=== PATIENT | female | born 1960 | race Caucasian/White ===

== ENCOUNTER 2023-03-08 07:26 | Inpatient (IN) ==
--- NOTE | 2023-02-16 12:55 | PAT Medication Instructions ---
Medication Instructions Date of Service February 16, 2023 Home Medications atorvastatin 10 mg tablet (Lipitor) 10 mg PO PM multivitamin 1 tab PO QAM acetaminophen 500 mg tablet (Acetaminophen Extra Strength) 1,000 mg PO TID ibuprofen 800 mg tablet 800 mg PO TID lisinopril 20 mg-hydrochlorothiazide 12.5 mg tablet 1 tab PO QPM ASK your surgeon for instructions ibuprofen 800 mg tablet 800 mg PO TID DO NOT take the morning of surgery multivitamin 1 tab PO QAM Take morning of surgery With a small sip of water, OTHERWISE NOTHING TO EAT OR DRINK AFTER MIDNIGHT: acetaminophen 500 mg tablet (Acetaminophen Extra Strength) 1,000 mg PO TID Take evening before surgery atorvastatin 10 mg tablet (Lipitor) 10 mg PO PM acetaminophen 500 mg tablet (Acetaminophen Extra Strength) 1,000 mg PO TID lisinopril 20 mg-hydrochlorothiazide 12.5 mg tablet 1 tab PO QPM Other Notes If you have any questions please call us at [phone] or [phone] or [phone] or [phone]
--- NOTE | 2023-02-22 09:20 | Anesthesiology Consultation ---
Date of Service February 22, 2023 Assessment & Plan (1) Encounter for pre-operative examination: Infectious disease screening: Per assessment on 02/22: No known infectious disease contacts or current infectious disease symptoms. No noted Covid positive test result in past 90 days. Chart Review Chart Review: Acceptable Risk for Surgery and Patient seen in Pre Admission Testing Teaching & Discussion Pre-Anesthesia Teaching/Discussion Notes: Instructed NPO after midnight before surgery,except medications with 15 cc of water. Medication instructions provided according to the PAT guidelines. History Surgery Operation Date: 03/08/23 09:10 Proposed Procedures p L3-S1 Decompression and Fusion Spinal Cord Monitoring - Jef Reina DO Height/Weight Height: 5 ft 6 in Weight: 96.1 kg Allergies Allergy/AdvReac Type Severity Reaction Status Date / Time No Known Allergies Allergy Verified 02/14/23 12:35 Medications Home Medications Medication Instructions Recorded Confirmed Last Taken atorvastatin 10 mg tablet (Lipitor) 10 mg PO PM 12/11/18 02/14/23 12/11/18 20:00 multivitamin 1 tab PO QAM 12/11/18 02/14/23 12/05/18 acetaminophen 500 mg tablet 1,000 mg PO TID 02/14/23 02/14/23 Unknown (Acetaminophen Extra Strength) ibuprofen 800 mg tablet 800 mg PO TID 02/14/23 02/14/23 Unknown lisinopril 20 1 tab PO QAM 02/14/23 02/22/23 Unknown mg-hydrochlorothiazide 12.5 mg tablet Past Medical History Medical History Chronic back pain DJD (degenerative joint disease) Dyslipidemia HTN (hypertension) Obesity Osteoarthritis Scoliosis Exercise / Class Metabolic Activity II 4-5 Yardwork/Stairs/Walk up hill Past Family History Family History Mother Family history of diabetes mellitus Past Surgical History Surgical History History of section x2 History of colonoscopy History of esophagogastroduodenoscopy (EGD) History of tooth extraction Hx of laminectomy L1-2 right laminectomy (12/12/18): Grade 3 view, MAC#3, ETT 7.0 at [facility] Nausea and vomiting after administration of anesthetic agent Past Anesthesia History No Hx of Anesthesia Complications and No Family Hx of Anesthesia Complications History of PONV History of PONV (*Improvement with scope patch + zofran in the past*) and Hx of Motion Sickness ([place]) Social History Smoking Status: Never smoker Do You Dip or Chew Tobacco: No Hx Alcohol Use: No Hx Substance Use: No substance use type: does not use Review of Systems Patient denies chest pain, shortness of breath, dyspnea on exertion, fever, chills, cough, wheezing, palpitations. Physical Exam Vital Signs VITALS BP 128/86 P 64 TEMP 98.3 SP02 97%RA RESP 16 PHYSICAL Full cervical extension range of motion. Full TMJ range of motion. TMD 3 finger breaths Mallampati Score 2 Dentition: intact, upper front right cap Lungs: clear throughout to auscultation Cardiac: regular rate and rhythm, no murmurs noted Spine: normal Carotid arteries: negative bruit Extremities: no LE edema Lab Results Anesthesia Preop Results Results Anesthesia Widget: WBC 5.83 K/ul (4.8-10.8) 02/22/23 Hgb 12.3 g/dl (12.0-16.0) 02/22/23 Hct 37.1 % (37.0-47.0) 02/22/23 Plt 337 K/uL (130-400) 02/22/23 Na 136 mmol/L (136-145) 02/22/23 K 4.6 mmol/L (3.5-5.1) 02/22/23 Cl 100 mmol/L (98-107) 02/22/23 CO2 30 mmol/L (21-32) 02/22/23 BUN 14 mg/dl (6-23) 02/22/23 Creat 0.80 mg/dl (0.6-1.2) 02/22/23 Glucose Level 109 mg/dl (70-99(Fasting)) H 02/22/23 PT 10.1 Seconds (9.0-12.0) 02/22/23 PTT 27.9 Seconds (21.0-31.0) 02/22/23 INR 0.9 (0.9-1.1) 02/22/23 Urine Color Yellow 02/22/23 Urine Appearance Clear (Clear) 02/22/23 Urine pH 5.5 (4.5-7.5) 02/22/23 Urine Specific [place] 1.021 (1.000-1.030) 02/22/23 Urine Protein Negative (Negative) 02/22/23 Urine Glucose (UA) Negative (Negative) 02/22/23 Urine Ketones Negative (Negative) 02/22/23 Urine Blood Negative (Negative) 02/22/23 Urine Nitrite Negative (Negative) 02/22/23 Urine Bilirubin Negative (Negative) 02/22/23 Urine Urobilinogen Negative (Negative) 02/22/23 Urine Leukocyte Esterase 1+ (Negative) H 02/22/23 Urine WBC (Auto) 1-5 /hpf (0-5) 02/22/23 Urine RBC (Auto) 0-4 /hpf (0-4) 02/22/23 Urine Hyaline Casts (Auto) 0 /lpf (0-5) 02/22/23 Urine Epithelial Cells (Auto) >30 /lpf (0-5) H 02/22/23 Urine Bacteria (Auto) Negative (Negative) 02/22/23 Blood Type O Positive 02/22/23 Antibody Screen NEGATIVE 02/22/23 Testing Electrocardiogram Date: 02/22/23 SB at 56bpm. LAD. Low voltage QRS. No significant change compared to 12/05/2018 ECG per consulting hr professional comparison* Chest X-Ray Date: 02/22/23 FINDINGS: No lines and tubes are seen. The cardiomediastinal silhouette is normal. The lungs are clear. No evidence of pleural effusion or pneumothorax. IMPRESSION: No acute chest disease.
[~2023-03-08 07:26] MED LIST: ACETAMINOPHEN 500 MG TAB PO SCH; CeleBREX 200 MG CAP PO SCH; DEXAMETHASONE SOD INJ 4 MG/ML VIAL ONE; GABAPENTIN 600 MG DOSE PO SCH; LIDOCAINE 2% 2 ML VIAL/AMP(20MG/ML) INFIL ONE; LR 15ML/HR IV SCH; LR 60ML/HR IV SCH; MIDAZOLAM HCL 1 MG/ML 2ML VIAL ONE; ONDANSETRON INJ 2 MG/ML 2 ML VIAL ONE; PROPOFOL IV EMULSION 10 MG/ML 20 ML VIAL IV ONE; ROCURONIUM BROMIDE 10 MG/ML 5 ML VIAL IV ONE; SUGAMMADEX SODIUM 200 MG/2 ML VIAL IV ONE; ceFAZolin 2000MG 2,000 MG/15 ML SYR IV SCH; fentaNYL citrate PF 100 MCG/2 ML VIAL ONE
[2023-03-08] MEDS ORDERED: SCOPOLAMINE 1 MG TDSY TD ONE ×2 (08:21→08:28)
--- NOTE | 2023-03-08 08:22 | History & Physical Bridge Note ---
Date of Service March 08, 2023 History & Physical Bridge Note I have examined the patient, reviewed the History & Physical and in the interval since the performance of the History & Physical I have noted the following changes of clinical significance: no changes noted
--- NOTE | 2023-03-08 08:23 | History & Physical Report ---
Date of Service March 08, 2023 Assessment & Plan (1) Neurogenic claudication due to lumbar spinal stenosis: Plan: L3-S1 decompression and fusion History of Present Illness Chief Complaint: Back and leg pain Primary Care Provider: Cori Donnelly DO This is a 62-year-old female who presents with chronic persistent back and leg pain after failing course of nonoperative care she is here for surgical intervention. Allergies Allergy/AdvReac Type Severity Reaction Status Date / Time No Known Allergies Allergy Verified 02/14/23 12:35 Home Medications Medication Instructions Recorded Confirmed Type atorvastatin 10 mg tablet (Lipitor) 10 mg PO PM 12/11/18 03/08/23 History multivitamin 1 tab PO QAM 12/11/18 03/08/23 History acetaminophen 500 mg tablet 1,000 mg PO TID 02/14/23 03/08/23 History (Acetaminophen Extra Strength) ibuprofen 800 mg tablet 800 mg PO TID 02/14/23 03/08/23 History lisinopril 20 1 tab PO QAM 02/14/23 03/08/23 History mg-hydrochlorothiazide 12.5 mg tablet Past Med/Surg History Medical History Chronic back pain DJD (degenerative joint disease) Dyslipidemia HTN (hypertension) Obesity Osteoarthritis Scoliosis Surgical History History of section x2 History of colonoscopy History of esophagogastroduodenoscopy (EGD) History of tooth extraction Hx of laminectomy L1-2 right laminectomy (12/12/18): Grade 3 view, MAC#3, ETT 7.0 at [facility] Nausea and vomiting after administration of anesthetic agent Family History Mother Family history of diabetes mellitus Social History Smoking Status: Never smoker Second Hand Exposure: No; Do You Dip or Chew Tobacco: No; Tobacco Cessation Education Requested by Patient: No Hx Alcohol Use: No Hx Substance Use: No Preferred Language: Chinese Communication Ability: Effective Editor Trade Journal Required: No Beliefs That Will Affect Care: None Current Living Situation: Spouse Other Information That Helps Us Care for You: No Feels Safe at Home: Yes Safety Concerns: Feels Safe At This Time Assistive Devices: None Physical Exam Physical Exam: Patient is alert and oriented Heart rate and rhythm Lungs clear Results & Data Results & Data Vital Signs (Past 12 Hours) Vital Signs Temp Pulse Resp BP Pulse Ox O2 Del Method 03/08/23 07:51 36.6 C 74 18 144/97 H 97 Room Air
[2023-03-08] MEDS ORDERED: ePHEDrine sulfate 50 MG/ML AMP IV PRN (08:29)
[2023-03-08] MEDS ORDERED: ONDANSETRON INJ 2 MG/ML 2 ML VIAL IV PRN ×2 (08:29→12:47)
[2023-03-08] MEDS ORDERED: ATROPINE SULFATE 0.1 MG/ML 10ML SYR IV PRN (08:29)
[2023-03-08] MEDS ORDERED: ceFAZolin 330 MG/ML 1 GM VIAL ONE (08:45)
[2023-03-08] MEDS ORDERED: BUPIVACAINE/EPINEPHRINE 0.25% 1:200,000 30 ML VIAL ONE (08:45)
[2023-03-08] MEDS ORDERED: fentaNYL citrate PF 100 MCG/2 ML VIAL ONE (09:15)
[2023-03-08] MEDS ORDERED: FLOSEAL HEMOSTATIC MATRIX 10ML TOP ONE (09:44)
--- NOTE | 2023-03-08 11:11 | Operative Report ---
Post Operative Report Pre & Post Diagnosis Operation Date: 03/08/23 09:05 Pre-Op Diagnosis: Lumbar spinal stenosis with radiculopathy Post-Op Diagnosis: Same I identified the patient and participated in the time-out.: Yes Procedure Operation Date: 03/08/23 09:05 Actual Procedures #1 lumbar decompression with bilateral medial facetectomies and foraminotomies L3-L4, L4-L5 and L5-S1. #2 posterior spinal fusion L3-S1. #3 placement posterior segmental instrumentation L3-S1. #4 interbody fusion L4-L5 L5-S1. #5 placement of Spira 12 x 26 mm at L4-5 and 11 x 26 mm x 2 at L5-S1. #6 placement of locally harvested morselized autograft in the posterior gutters. #7 placement of I factor in the interbody cages and infuse collagen sponge, and master graft in the posterior lateral gutters. Surgeon Jef Reina, DO Director Of Design Kayy Syed Estimated Blood Loss 350 Findings See Below The patient is 5 foot 6 weighing over 96 kg with a BMI in excess of 34. Patient's body habitus did contribute to significant technical difficulty requiring her deeper retractors longer instruments in order to perform her procedure. This at least 50% increased operative time. Specimens None Indications This is a 62-year-old female who presents above-mentioned diagnosis after failing course of nonoperative care she is here for surgical invention. Description of Procedure Patient was met with identified informed consent obtained. Patient was then taken to the operative suite underwent a patient placed in a prone position on the Pillager table top Barry frame. All bony prominences well-padded eyes inspected to ensure no external pressure placed upon them. This point lumbar spine was prepped and draped in a sterile fashion. Sharp dissection with assistance of Bovie cautery to form down to and exposing the lamina transverse processes of L3 L4-5 and sacral ala bilaterally. From caudal to cephalad fashion complete laminectomy of L5 L4 and L3 was performed including bilateral medial facetectomies and foraminotomies addressing severe spinal stenosis. Pedi wei screws then placed in L3-L4-L5 and S1 levels bilaterally with assistance of fluoroscopy and appropriately sized jose angel contoured and placed. By way of transforaminal approach on the left discectomy of L5-S1 was performed endplates curetted to subcortical bleeding bone and 11 x 26 mm Spira cage with I factor tapped in position. Then proceeded to the right transforaminal region at L5-S1 completed the discectomy curetted the endplates to subcortical bleeding bone and placed a second 11 x 26 mm Spira cage with I factor into position. Then proceeded to L 4 L5 and again by way the transforaminal approach left complete discectomy performed endplates curetted to subcortical bleeding bone and a 12 x 26 mm Spira cage with I factor tapped in position. The rods were then compressed locked in final position bilaterally. The transverse processes of L3 L4-5 and the sacral ala burred to subcortically and bone. Infuse collagen sponge from mass graft locally harvested morselized autograft was placed in the posterior gutters. 15 round AGUSTINA drain inserted. The incision was then closed with 1 Vicryl to fascia 2-0 Vicryl subcutaneously and 4 Monocryl for final skin closure. Steri-Strip sterile dressings placed. Patient awakened taken to PACU stable condition. Please note spinal cord monitoring was utilized at the procedure no changes noted. Lastly Kayy Syed was present at the entire katherine sean and while the patient positioning complex portion of the surgery and final skin closure. I attest to the content of the Intraoperative Record and any orders documented therein. Any exceptions are noted below.
--- NOTE | 2023-03-08 11:32 | Fluoroscopy Report ---
FL lumbar spine 2-3V CLINICAL HISTORY: L3-S1 DECOMPRESSION AND FUSION TECHNIQUE: 3 views were obtained with the C-arm in the OR with the above procedure. Total fluoroscopy time was 33.6 seconds. Radiation dose was 35.81 mGy. Comparison: Comparison is made to lumbar spine fluoroscopy 12/12/2018 FINDINGS/IMPRESSION: Intraoperative images were obtained of L3-S1 decompression fusion. Please correlate with intraoperative fluoroscopy and operative report. ACT 112: Negative or not required by law. Electronically signed by: Bunny Perales M.D. 03/08/2023 11:31 AM
[2023-03-08] MEDS ORDERED: ROCURONIUM BROMIDE 10 MG/ML 5 ML VIAL IV ONE ×3 (11:33)
[2023-03-08] MEDS: fentaNYL citrate PF 100 MCG/2 ML VIAL IV PRN ×4 (11:36→11:53)
[2023-03-08] MEDS ORDERED: HYDROmorphone INJ 0.5 MG/0.5 ML SYR IV STA ×4 (12:04→12:22)
[2023-03-08] MEDS ORDERED: HYDROmorphone INJ 2 MG/ML SYR/VIAL ONE (12:05)
[2023-03-08] MEDS ORDERED: diphenhydrAMINE Capsule 25 MG CAP PO PRN (12:47)
[2023-03-08] MEDS ORDERED: PROMETHAZINE HCL 12.5 MG in SODIUM CHLORIDE 0.9% 50 ML IV PRN (12:47)
[2023-03-08] MEDS ORDERED: HYDROmorphone INJ 1 MG/ML SYRINGE IV PRN (12:47)
[2023-03-08] MEDS ORDERED: ACETAMINOPHEN 500 MG TAB PO PRN (12:47)
[2023-03-08] MEDS ORDERED: FAMOTIDINE 20 MG TAB PO PRN (12:47)
[2023-03-08] MEDS ORDERED: LORazepam 2 MG/1 ML VIAL IV PRN (12:47)
[2023-03-08] MEDS ORDERED: LORazepam 0.5 MG TAB PO PRN (12:47)
[2023-03-08] MEDS ORDERED: ONDANSETRON 4 MG OD TAB PO PRN (12:47)
[2023-03-08] MEDS ORDERED: MAGNESIUM HYDROXIDE SUSP 30 ML UDC PO PRN (12:47)
[2023-03-08] MEDS ORDERED: HYDROmorphone INJ 0.5 MG/0.5 ML SYR IV PRN (12:47)
[2023-03-08] MEDS ORDERED: DO NOT ADMINISTER PNEUMOCOCCAL VACCINE PRN (12:47)
[2023-03-08] MEDS ORDERED: ALUMINUM/MAGNESIUM SUSP 30 ML UDC PO PRN (12:47)
[2023-03-08] MEDS ORDERED: hydrOXYzine HCl 25 MG TAB PO PRN (12:47)
[2023-03-08] MEDS ORDERED: ACETAMINOPHEN 1,000 MG/100 ML VIAL IV PRN (12:47)
[2023-03-08] MEDS ORDERED: SOD PHOSPHATE/SOD BIPHOSPHATE ENEMA 132 ML BTL PR PRN (12:47)
[2023-03-08] MEDS ORDERED: bisacodyL 10 MG SUPP PR PRN (12:47)
[2023-03-08] MEDS ORDERED: METOCLOPRAMIDE HCL INJ 5 MG/ML 2 ML VIAL IV PRN (12:47)
[2023-03-08] MEDS ORDERED: DO NOT ADMINISTER FLU VACCINE PRN (12:47)
[2023-03-08] MEDS ORDERED: NALOXONE HCL 0.4 MG/1 ML VIAL/CARP IV PRN (12:47)
[2023-03-08] MEDS: LACTATED RINGER'S 1,000 ML IV SCH ×2 (13:38→20:20)
--- NOTE | 2023-03-08 14:34 | Anesthesiology Progress Note ---
Date of Service March 08, 2023 Anesthesia Post Procedure Vital Signs Vital Signs: Temp Pulse Pulse Resp BP BP Pulse Ox 03/08/23 13:57 97.2 F L 65 18 124/77 97 03/08/23 13:00 97.2 F L 58 L 18 147/83 H 100 03/08/23 12:50 97.3 F L 60 18 124/80 99 03/08/23 12:35 97.5 F L 54 L 12 126/76 100 03/08/23 12:25 54 L 12 127/72 100 03/08/23 12:15 54 L 12 120/65 100 03/08/23 12:05 60 17 144/70 H 97 03/08/23 11:55 63 18 130/84 100 03/08/23 11:45 54 L 12 115/69 100 03/08/23 11:35 70 12 126/72 100 03/08/23 11:28 96.8 F L 71 16 121/71 98 03/08/23 07:51 97.9 F 74 18 144/97 H 97 O2 Del Method O2 Flow Rate 03/08/23 13:57 Room Air 03/08/23 13:00 Room Air 03/08/23 12:50 Room Air 03/08/23 12:35 Nasal Cannula 2 03/08/23 12:25 Nasal Cannula 2 03/08/23 12:15 Nasal Cannula 2 03/08/23 12:05 Nasal Cannula 2 03/08/23 11:55 Oxymask 4 03/08/23 11:45 Oxymask 4 03/08/23 11:35 Oxymask 9 03/08/23 11:28 Oxymask 9 03/08/23 07:51 Room Air Pain Intensity Back: Pain Intensity: 4 Right Leg: Pain Intensity: 4 Transfer of Care Handoff Completed per policy Notes Mental Status: alert / awake / arousable and participated in evaluation Patient Amnestic to Procedure: Yes Nausea / Vomiting: adequately controlled Pain: adequately controlled Airway Patency, RR, SpO2: stable & adequate BP & HR: stable & adequate Hydration State: stable & adequate Anesthetic Complications: no major complications apparent and Pt Satisfied with anesthetic care
[2023-03-08] MEDS: oxyCODONE HCL IR 5 MG TAB (IMMEDIATE RELEASE) PO PRN ×2 (15:00→20:11)
[2023-03-08] MEDS: CHECK SCOPOLAMINE PATCH PLACEMENT SCH ×2 (16:21→21:12)
[2023-03-08] MEDS: ceFAZolin 2000MG 2,000 MG/15 ML SYR IV SCH (17:28)
[2023-03-08] MEDS: ATORVASTATIN 10 MG TAB PO SCH (20:13)
[2023-03-08] MEDS: DOCUSATE SODIUM/SENNA 50/8.6MG TAB PO SCH (20:13)
[2023-03-09] MEDS: ceFAZolin 2000MG 2,000 MG/15 ML SYR IV SCH (00:20)
[2023-03-09] MEDS: oxyCODONE HCL IR 5 MG TAB (IMMEDIATE RELEASE) PO PRN ×4 (00:20→17:07)
--- NOTE | 2023-03-09 02:26 | Consultation ---
Date of Consultation March 09, 2023 Assessment & Plan (1) Hypertension: 62-year-old female past med significant for hyperlipidemia, prediabetes, hypertension, history of lumbar laminectomy is s/p back surgery. Status post back surgery Management as per orthopedics Hypertension Lisinopril hydrochlorothiazide We will monitor Prediabetes We will follow HbA1c levels Hyperlipidemia On statin DVT prophylaxis and disposition as per orthopedics History of Present Illness Reason for Consultation: S/p back surgery Attending Physician: Jef Reina DO History of Present Illness 62-year-old female past med significant for hyperlipidemia, prediabetes, hypertension, history of lumbar laminectomy is s/p back surgery. Tolerated procedure fine. Resting comfortably. Denies chest pain or shortness of breath. No headaches. No nausea. No abdominal pain. Appetite is okay. No cough. No fevers. Normal bowel and bladder movements. Past medical history as mentioned above Past surgical history. . Colonoscopy. EGD. Laminectomy. Social history. . No smoking. No alcohol. No drug use. Family history. Mother had diabetes, heart disorder, hypertension, stroke. Father had prostate cancer. Sister has hypertension. Brother has hypertension. Allergies Allergy/AdvReac Type Severity Reaction Status Date / Time No Known Allergies Allergy Verified 02/14/23 12:35 Home Medications Medication Instructions Recorded Confirmed Type atorvastatin 10 mg tablet (Lipitor) 10 mg PO PM 12/11/18 03/08/23 History multivitamin 1 tab PO QAM 12/11/18 03/08/23 History acetaminophen 500 mg tablet 1,000 mg PO TID 02/14/23 03/08/23 History (Acetaminophen Extra Strength) ibuprofen 800 mg tablet 800 mg PO TID 02/14/23 03/08/23 History lisinopril 20 1 tab PO QAM 02/14/23 03/08/23 History mg-hydrochlorothiazide 12.5 mg tablet Patient History Medical History Chronic back pain DJD (degenerative joint disease) Dyslipidemia HTN (hypertension) Obesity Osteoarthritis Scoliosis Surgical History History of section x2 History of colonoscopy History of esophagogastroduodenoscopy (EGD) History of tooth extraction Hx of laminectomy L1-2 right laminectomy (12/12/18): Grade 3 view, MAC#3, ETT 7.0 at [facility] Nausea and vomiting after administration of anesthetic agent Family History Mother Family history of diabetes mellitus Social History Smoking Status: Never smoker Second Hand Exposure: No; Do You Dip or Chew Tobacco: No; Tobacco Cessation Education Requested by Patient: No Hx Alcohol Use: No Hx Substance Use: No Preferred Language: [place] Communication Ability: Effective Abrasive Worker Required: No Beliefs That Will Affect Care: None Current Living Situation: Spouse Other Information That Helps Us Care for You: No Feels Safe at Home: Yes Safety Concerns: Feels Safe At This Time Assistive Devices: None Review of Systems Review of Systems: All systems reviewed & are unremarkable except as noted in HPI & below Physical Exam Physical Exam: General- Not in distress. Head- atraumatic Eyes-, EOMI Neck- supple, no JVD. Lungs- clear to auscultation no wheezing or crackles. Heart- regular rhythm; no murmur, no gallop. Abdomen- normal bowel sounds, soft, nontender, no distension. Extremities- no pretibial edema, moves extremities Neuro- alert, oriented x 3; EOMI; no facial palsy; no dysarthria;Non focal. Musculoskeletal. S/p back surgery. dressing intact. Results & Data Vital Signs (Past 12 Hours) Vital Signs Temp Pulse Resp BP Pulse Ox O2 Del Method 03/08/23 20:20 Room Air 03/08/23 22:58 36.4 C L 61 18 126/82 100 Room Air 03/08/23 19:04 36.3 C L 60 16 122/77 100 Room Air 03/08/23 15:50 36.4 C L 63 18 138/83 99 Room Air 03/08/23 14:55 36.5 C 61 18 138/83 99 Room Air Diagnostic Findings Laboratory Results Blood Type O Positive 03/08/23 07:46 Antibody Screen NEGATIVE 03/08/23 07:46 Crossmatch See Detail 03/08/23 07:46 Impressions Lumbar Spine X-Ray 03/08/23 09:05 FL lumbar spine 2-3V CLINICAL HISTORY: L3-S1 DECOMPRESSION AND FUSION TECHNIQUE: 3 views were obtained with the C-arm in the OR with the above procedure. Total fluoroscopy time was 33.6 seconds. Radiation dose was 35.81 mGy. Comparison: Comparison is made to lumbar spine fluoroscopy 12/12/2018 FINDINGS/IMPRESSION: Intraoperative images were obtained of L3-S1 decompression fusion. Please correlate with intraoperative fluoroscopy and operative report. ACT 112: Negative or not required by law. Electronically signed by: Bunny Perales M.D. 03/08/2023 11:31 AM
[2023-03-09] MEDS: POLYETHYLENE (MIRALAX) 17 GM PACK PO SCH ×4 (06:28→22:56)
[2023-03-09 06:41] LABS: Basophils # (auto) 0.01 K/uL (0.00-0.20); Basophils % (auto) 0.1 %; Hematocrit (blood only) 31.5 % (37.0-47.0); Hemoglobin 10.5 g/dl (12.0-16.0); Immature Granulocytes # (auto) 0.09 K/uL (0.01-0.20); Immature Granulocytes % (auto) 0.6 %; Lymphocytes # (auto) 1.38 K/uL (1.20-3.40); Lymphocytes % (auto) 8.9 %; Mean Corpuscular Hemoglobin 30.1 pg (25.0-34.0); Mean Corpuscular Hgb Conc 33.3 g/dL (32.0-36.0); Mean Corpuscular Volume 90.3 fL (80.0-100.0); Mean Platelet Volume 9.5 fL (9.4-12.4); Monocytes # (auto) 1.37 K/uL (0.11-0.59); Monocytes % (auto) 8.8 %; Neutrophils # (auto) 12.71 K/uL (1.40-6.50); Neutrophils % (auto) 81.6 %; Platelet Count 272 K/uL (130-400); RDW Coefficient of Variation 14.1 % (11.5-14.5); RDW Standard Deviation 46.9 fL (36.4-46.3); Red Blood Count 3.49 M/uL (4.20-5.40); White Blood Count 15.56 K/ul (4.8-10.8)
[2023-03-09 07:08] LABS: Calcium 9.2 mg/dl (8.6-10.3); Creatinine Clr Calc Pharmacy 89.8 ml/min; Est GFR (African American) 98.3 ml/min; Est GFR (Non-African American) 84.8 ml/min; Potassium 4.2 mmol/L (3.5-5.1)
[2023-03-09 07:29] LABS: Estimated Average Glucose 131 mg/dl; Hemoglobin A1C 6.2 % (4.5-5.6)
[2023-03-09] MEDS: CHECK SCOPOLAMINE PATCH PLACEMENT SCH ×3 (08:12→22:56)
[2023-03-09] MEDS: dexAMETHasone 6 MG in SYRINGE 0 ML IV SCH (08:13)
[2023-03-09] MEDS: LISINOPRIL/HCTZ 20/12.5MG 1 TAB TAB PO SCH (08:14)
[2023-03-09] MEDS: MULTIVITAMIN TAB PO SCH (08:15)
--- NOTE | 2023-03-09 11:14 | Consultation ---
Date of Consultation March 09, 2023 Assessment & Plan (1) Hypertension: 62-year-old female past med significant for hyperlipidemia, prediabetes, hypertension, history of lumbar laminectomy is s/p back surgery. Status post back surgery Management as per orthopedics Hypertension Lisinopril hydrochlorothiazide We will monitor Prediabetes We will follow HbA1c levels Hyperlipidemia On statin DVT prophylaxis and disposition as per orthopedics History of Present Illness Attending Physician: Jef Reina DO Allergies Allergy/AdvReac Type Severity Reaction Status Date / Time No Known Allergies Allergy Verified 02/14/23 12:35 Home Medications Medication Instructions Recorded Confirmed Type atorvastatin 10 mg tablet (Lipitor) 10 mg PO PM 12/11/18 03/08/23 History multivitamin 1 tab PO QAM 12/11/18 03/08/23 History acetaminophen 500 mg tablet 1,000 mg PO TID 02/14/23 03/08/23 History (Acetaminophen Extra Strength) ibuprofen 800 mg tablet 800 mg PO TID 02/14/23 03/08/23 History lisinopril 20 1 tab PO QAM 02/14/23 03/08/23 History mg-hydrochlorothiazide 12.5 mg tablet Patient History Medical History Chronic back pain DJD (degenerative joint disease) Dyslipidemia HTN (hypertension) Obesity Osteoarthritis Scoliosis Surgical History History of section x2 History of colonoscopy History of esophagogastroduodenoscopy (EGD) History of tooth extraction Hx of laminectomy L1-2 right laminectomy (12/12/18): Grade 3 view, MAC#3, ETT [address] [facility] Nausea and vomiting after administration of anesthetic agent Family History Mother Family history of diabetes mellitus Social History Smoking Status: Never smoker Second Hand Exposure: No; Do You Dip or Chew Tobacco: No; Tobacco Cessation Education Requested by Patient: No Hx Alcohol Use: No Hx Substance Use: No Preferred Language: Irish Communication Ability: Effective Arborist Climber Required: No Beliefs That Will Affect Care: None Current Living Situation: Spouse Other Information That Helps Us Care for You: No Feels Safe at Home: Yes Safety Concerns: Feels Safe At This Time Assistive Devices: None Results & Data Vital Signs (Past 12 Hours) Vital Signs Temp Pulse Resp BP BP Pulse Ox O2 Del Method 03/09/23 10:51 36.6 C 64 16 115/73 99 Room Air 03/09/23 08:09 36.4 C L 72 16 114/82 100 Room Air 03/09/23 06:27 69 110/73 03/09/23 03:34 36.4 C L 60 20 106/70 98 Room Air
--- NOTE | 2023-03-09 14:45 | Communication Note ---
Date of Service: March 09, 2023 Pt seen this AM. Pain well controlled, though she notes she feels like she is having symptoms on the other leg. States that she had no acute concerns otherwise.
--- NOTE | 2023-03-09 16:03 | Orthopedic Progress Note ---
Date of Service March 09, 2023 Assessment & Plan (1) Neurogenic claudication due to lumbar spinal stenosis: Plan: At this time continue physical therapy monitor AGUSTINA output hopefully discharge home in the next few days. Admission and Anticipated Discharge Date Admission Date: March 08, 2023 Subjective Back pain controlled leg symptoms improved Physical Exam Physical Exam: Patient is up and ambulating. Is good strength testing. Appears comfortable. Results & Data Vital Signs (Past 12 Hours) Vital Signs Temp Pulse Resp BP BP Pulse Ox O2 Del Method 03/09/23 15:47 36.5 C 64 16 117/75 97 Room Air 03/09/23 10:51 36.6 C 64 16 115/73 99 Room Air 03/09/23 08:09 36.4 C L 72 16 114/82 100 Room Air 03/09/23 06:27 69 110/73 Queries Orthopedic Spine Obesity: Yes
[2023-03-09] MEDS: traMADol HCL 50 MG TABLET PO PRN (19:55)
[2023-03-09] MEDS: ATORVASTATIN 10 MG TAB PO SCH (19:56)
[2023-03-09] MEDS: DOCUSATE SODIUM/SENNA 50/8.6MG TAB PO SCH (19:58)
[2023-03-10] MEDS: traMADol HCL 50 MG TABLET PO PRN ×3 (02:53→23:12)
[2023-03-10] MEDS: POLYETHYLENE (MIRALAX) 17 GM PACK PO SCH ×4 (06:11→23:30)
[2023-03-10 06:36] LABS: Basophils # (auto) 0.02 K/uL (0.00-0.20); Basophils % (auto) 0.1 %; Eosinophils # (auto) 0.01 K/uL (0.00-0.50); Eosinophils % (auto) 0.1 %; Hematocrit (blood only) 26.6 % (37.0-47.0); Hemoglobin 9.1 g/dl (12.0-16.0); Immature Granulocytes % (auto) 0.6 %; Lymphocytes # (auto) 2.88 K/uL (1.20-3.40); Lymphocytes % (auto) 18.5 %; Mean Corpuscular Hemoglobin 30.3 pg (25.0-34.0); Mean Corpuscular Hgb Conc 34.2 g/dL (32.0-36.0); Mean Corpuscular Volume 88.7 fL (80.0-100.0); Mean Platelet Volume 9.6 fL (9.4-12.4); Monocytes # (auto) 1.76 K/uL (0.11-0.59); Monocytes % (auto) 11.3 %; Neutrophils # (auto) 10.83 K/uL (1.40-6.50); Neutrophils % (auto) 69.4 %; Platelet Count 241 K/uL (130-400); RDW Coefficient of Variation 14.6 % (11.5-14.5); RDW Standard Deviation 47.4 fL (36.4-46.3)
[2023-03-10 06:57] LABS: Calcium 8.8 mg/dl (8.6-10.3); Creatinine Clr Calc Pharmacy 96.2 ml/min; Est GFR (African American) 106.9 ml/min; Est GFR (Non-African American) 92.2 ml/min; Magnesium 1.9 mg/dl (1.7-2.4); Phosphorus 3.1 mg/dl (2.5-4.9)
[2023-03-10] MEDS: CHECK SCOPOLAMINE PATCH PLACEMENT SCH ×3 (06:59→23:30)
[2023-03-10] MEDS: dexAMETHasone 6 MG in SYRINGE 0 ML IV SCH (07:39)
[2023-03-10] MEDS: MULTIVITAMIN TAB PO SCH (07:39)
[2023-03-10] MEDS: LISINOPRIL/HCTZ 20/12.5MG 1 TAB TAB PO SCH (07:39)
[2023-03-10] MEDS: oxyCODONE HCL IR 5 MG TAB (IMMEDIATE RELEASE) PO PRN ×2 (09:09→17:05)
--- NOTE | 2023-03-10 09:48 | Orthopedic Progress Note ---
Date of Service March 10, 2023 Assessment & Plan (1) Neurogenic claudication due to lumbar spinal stenosis: Plan: At this time we will continue physical therapy monitor AGUSTINA output anticipate discharge home tomorrow. Admission and Anticipated Discharge Date Admission Date: March 08, 2023 Subjective Patient's back pain is controlled leg pain improved. She is ambulating well. Physical Exam Physical Exam: Patient is in the chair at the bedside. Is good strength testing. Results & Data Vital Signs (Past 12 Hours) Vital Signs Temp Pulse Resp BP Pulse Ox O2 Del Method 03/10/23 07:40 36.3 C L 75 16 112/77 96 Room Air Queries Orthopedic Spine Obesity: Yes
--- NOTE | 2023-03-10 16:12 | Hospitalist Progress Note ---
Date of Service March 10, 2023 Assessment & Plan (1) S/P spinal surgery: (2) Neurogenic claudication due to lumbar spinal stenosis: (3) Hypertension: (4) Dyslipidemia: Plan This is a 62-year-old female past med significant for hyperlipidemia, prediabetes, hypertension, history of lumbar laminectomy is s/p back surgery. Status post back surgery POD#2 s/p lumbar decompression with bilateral medial facetectomies and foraminotomies L3-L4, L4-L5 and L5-S1. #2 posterior spinal fusion L3-S1. #3 placement posterior segmental instrumentation L3-S1 Per ortho for pain control, wound care, anticoagulation and activities Monitor H&H (hgb 9.1 today, 10.5 yesterday) Continue incentive spirometry, PT/OT when appropriate Hypertension Lisinopril, hydrochlorothiazide Prediabetes HbA1c 6.2, carb consistent diet Recommend lifestyle modifications Morbid obesity BMI 34- lifestyle modifications as above Hyperlipidemia Continue statin DVT prophylaxis anddisposition as per orthopedics - planned dc for tomorrow. Thank you for this consultation. We will follow the patient with you during their hospital stay. You can reach a [facility] via [employer]. Admission and Anticipated Discharge Date Admission Date: March 08, 2023 Supervising Physician Co-Signing Physician Notes Pt seen and examined by myself, Martha Zamora MD on the day of service. Care was coordinated with Dorothea Crowell PA-C. States that she is still having pain and symptoms but discussing with primary team. Denied acute concerns otherwise. Breath sounds clear. Otherwise as above. Subjective Patient seen and examined in 305. Patient with mild surgical site discomfort but otherwise feeling well. Participating with therapy without issue, walking in the halls. Passing gas but no postop bowel movement yet. Denies any fever, chills, lightheadedness, chest pain, shortness of breath, nausea, vomiting, abdominal pain. Review of Systems Review of Systems: At least ten systems reviewed and negative except as noted in the HPI. Physical Exam Physical Exam: Gen: WD/WN, NAD, sitting in bedside chair, A&Ox3 HEENT: Normocephalic, atraumatic, conjunctivae moist, sclerae anicteric, mucous membranes moist Lung: Clear to Auscultation bilaterally, no wheezes/rales/rhonchi Heart: Regular rate, regular rhythm, no murmurs, rubs, or gallops Abdomen: Soft, NT, ND +BS x 4 Extremities: +surgical dressing c/d/i, AGUSTINA drain visualized. No edema Skin: Warm, no rash Results & Data Results & Data Vital Signs (Past 12 Hours) Vital Signs Temp Pulse Resp BP Pulse Ox O2 Del Method 03/10/23 15:32 36.3 C L 68 16 131/78 96 Room Air 03/10/23 07:40 36.3 C L 75 16 112/77 96 Room Air Laboratory Results Short CBC 03/10/23 Range/Units 05:37 WBC 15.60 H (4.8-10.8) K/ul Hgb 9.1 L (12.0-16.0) g/dl Hct 26.6 L (37.0-47.0) % Plt Count 241 (130-400) K/uL BMP 03/10/23 05:37 Sodium 138 Potassium 4.0 Chloride 103 Carbon Dioxide 30 BUN 21 Creatinine 0.70 Glucose 103 H Calcium 8.8 Diagnostic Findings Lumbar Spine X-Ray 03/08/23 09:05 FL lumbar spine 2-3V CLINICAL HISTORY: L3-S1 DECOMPRESSION AND FUSION TECHNIQUE: 3 views were obtained with the C-arm in the OR with the above proc edure. Total fluoroscopy time was 33.6 seconds. Radiation dose was 35.81 mGy. Comparison: Comparison is made to lumbar spine fluoroscopy 12/12/2018 FINDINGS/IMPRESSION: Intraoperative images were obtained of L3-S1 decompression fusion. Please correlate with intraoperative fluoroscopy and operative report. ACT 112: Negative or not required by law. Electronically signed by: Bunny Perales M.D. 03/08/2023 11:31 AM
[2023-03-10] MEDS: ATORVASTATIN 10 MG TAB PO SCH (20:45)
[2023-03-10] MEDS: DOCUSATE SODIUM/SENNA 50/8.6MG TAB PO SCH (20:45)
[2023-03-11 06:16] LABS: Basophils # (auto) 0.02 K/uL (0.00-0.20); Basophils % (auto) 0.1 %; Eosinophils # (auto) 0.02 K/uL (0.00-0.50); Eosinophils % (auto) 0.1 %; Hematocrit (blood only) 27.6 % (37.0-47.0); Hemoglobin 9.5 g/dl (12.0-16.0); Immature Granulocytes # (auto) 0.06 K/uL (0.01-0.20); Immature Granulocytes % (auto) 0.4 %; Lymphocytes # (auto) 3.13 K/uL (1.20-3.40); Lymphocytes % (auto) 22.7 %; Mean Corpuscular Hemoglobin 30.7 pg (25.0-34.0); Mean Corpuscular Hgb Conc 34.4 g/dL (32.0-36.0); Mean Corpuscular Volume 89.3 fL (80.0-100.0); Mean Platelet Volume 9.5 fL (9.4-12.4); Monocytes # (auto) 1.57 K/uL (0.11-0.59); Monocytes % (auto) 11.4 %; Neutrophils # (auto) 8.98 K/uL (1.40-6.50); Neutrophils % (auto) 65.3 %; Platelet Count 247 K/uL (130-400); RDW Coefficient of Variation 14.5 % (11.5-14.5); RDW Standard Deviation 47.5 fL (36.4-46.3); Red Blood Count 3.09 M/uL (4.20-5.40); White Blood Count 13.78 K/ul (4.8-10.8)
[2023-03-11] MEDS: oxyCODONE HCL IR 5 MG TAB (IMMEDIATE RELEASE) PO PRN (06:32)
[2023-03-11] MEDS: POLYETHYLENE (MIRALAX) 17 GM PACK PO SCH (06:34)
[2023-03-11 06:35] LABS: BUN Creatinine Ratio 31.3 (10-20); Calcium 8.8 mg/dl (8.6-10.3); Creatinine Clr Calc Pharmacy 105.2 ml/min; Est GFR (African American) 110.1 ml/min; Phosphorus 2.8 mg/dl (2.5-4.9); Potassium 4.1 mmol/L (3.5-5.1)
[2023-03-11] MEDS: dexAMETHasone 6 MG in SYRINGE 0 ML IV SCH (09:14)
[2023-03-11] MEDS: MULTIVITAMIN TAB PO SCH (09:14)
[2023-03-11] MEDS: LISINOPRIL/HCTZ 20/12.5MG 1 TAB TAB PO SCH (09:14)
--- NOTE | 2023-03-11 09:46 | Discharge Summary ---
Date of Service March 11, 2023 Admission HPI Per Admitting Provider This is a 62-year-old female who presents with chronic persistent back and leg pain after failing course of nonoperative care she is here for surgical intervention. Principal Diagnosis Lumbar spinal stenosis with neurogenic claudication Discharge Data Allergies Allergy/AdvReac Type Severity Reaction Status Date / Time No Known Allergies Allergy Verified 02/14/23 12:35 Consultations 03/08/23 12:47 Consult Hospitalist Routine Procedures Performed Operation Date: 03/08/23 09:05 Actual Procedures p L3-S1 Decompression and Fusion, Spinal Cord Monitoring(Not Applicable) - Jef Reina DO Ordered Studies 03/08/23 09:05 FL lumbar spine 2-3V Routine Hospital Course (1) Neurogenic claudication due to lumbar spinal stenosis: Patient limited motion fusion tolerates well was taken to orthopedic floor postoperatively postop day 1 she was up and ambulating progressed postop day #2 and postop day 3 continue improved AGUSTINA drain decreasing probably. Extra strength testing. Simply discharged home. Discharge orders and instructions from the chart for further review. Total Time Total Time Spent Total Time Spent (In Minutes): 20 minutes Discharge Plan Discharge Items Patient Disposition: Home - Self-Care Reason For Visit: Spinal Stenosis, Lumbar Region without Neurogenic Discharge Diagnosis: Lumbar spinal stenosis with neurogenic claudication Activity: As commented below Non-emergency contact: Primary Care Provider Call non-emergency contact if: you have any medication questions Follow-up/Referrals: Cori Donnelly DO [Primary Care Provider] - Diet: Regular Addtl Attending Provider Instructions: ACTIVITY RECOMMENDATIONS: SELF CARE INSTRUCTIONS AFTER THORACIC/LUMBAR FUSIONS 1. You may walk to your tolerance. It is good exercise for your legs and back. Expect some back and intermittent leg aches and pains. 2. You may perform "counter-top" level activities (make a sandwich, theo with a project, etc.). 3. No bending or lifting of more than 10 pounds or back twisting of any nature (roll like a log when turning in bed). 4. You may ride in a car for 20-30 minutes at a time. No driving until after your first visit with your doctor. 5. Frequent changes of position and restricting sitting to 30 minutes at a time will help limit the amount of back spasms and stiffness you may experience. 6. You may discontinue the use of ambulatory aids (cane, crutches, etc.) once your strength and confidence allow. 7. You may dental insurance coordinator the shower and let water strike your incision when you arrive home at least once daily. Do not take a tub bath, sit in a hot tub or go into a swimming pool until after your first recheck in the office. SPECIAL CARE INSTRUCTIONS: VERY IMPORTANT TO READ AND REVIEW A. Your surgical incision has been closed with a cosmetic suture under the skin that will dissolve in about 6 weeks. In 14 days, you can use a pair of clean scissors and cut the suture that is left outside of the skin at the ends of your incision. 1. The small skin tapes can be removed 7 days after surgery if they have not fallen off by that point. 2. You may keep the wound open to air as much as possible to promote healing after post-op day number 5 unless told otherwise by your doctor. 3. If you think the wound looks like it is becoming infected (redness or worsening drainage) and/or you are experiencing fever, chill or worsening back pain and muscle spasms, contact the office so that we may evaluate you as soon as possible. B. Complications are uncommon, but please contact us if you have any signs or symptoms of: 1. wound infection (fever higher than 102.5 degrees F, redness, separation of wound, drainage, or increasing pain from the incision) 2. blood clots in legs (pain, swelling, redness and warmth in legs) 3. urinary tract infection (fever higher than 102.5 degrees F, burning upon urination or increased frequency of urination) 4. nerve problems (inability to walk on your toes or heels, numbness, loss of bowel or bladder control) 5. any other symptoms that concern you C. Please call the office at if you have any concerns or questions about your operation or recovery. D. No smoking! Smoking drastically decreases the chance of a solid fusion. E. Do not take any anti-inflammatory medications (Indocin, Advil, Motrin, Aspirin, Naprosyn, etc.) as these may inhibit the chance of a solid fusion. Tylenol is okay to take for pain. MANAGING PAIN AFTER SPINAL SURGERY 1. Narcotic medication is intended for short-term use and will be provided for surgical pain. Surgical pain usually lasts for a period of 4-6 weeks. Narcotic medication includes Percocet, Vicodin, Darvocet, Tylenol #3 or Lortab. 2. Longer-term pain is more appropriately treated with non-narcotic medication such as Tylenol ES. 3. Muscle spasm is not appropriately treated with narcotics. Muscle relaxers such as Soma, Flexeril or Skelaxin can be used along with Tylenol ES. 4. Remember that we all live with some "aches and pains". This is not unusual or uncommon after an injury or as we get older. a. Back pain is expected and may include muscle spasms for 4 to 6 weeks after surgery. The pain should gradually improve. If the pain worsens for no apparent reason, please contact the office. b. Intermittent leg pain may also be experienced and should not be concerned about unless it worsens for no apparent reason. If so, please contact the office. 5. We will provide appropriate medication within the normal guidelines of their prescribed use. We will also be very cautious and aware of potential abuse and extended duration of patients' medication needs. a. Pain medications are for your comfort and to assist with sleep and rest so that the tissue can heal. They are not provided in order to return to normal activity and should not be used through the day. To do so or worsening pain at night can result from ongoing tissue damage and development of tolerance to the prescribed medicine. 6. Please allow 2-3 days to process refills. Prescriptions will not be mailed but must be picked up at the office. FOLLOW UP VISIT: Keep your scheduled follow-up appointment. Any questions, please call the office at . Pending Studies at Discharge: No Stand-Alone Forms: My [facility], Smoking Cessation Medications and DC Order Prescriptions: New tramadol 50 mg tablet 50 mg PO Q6H PRN (Reason: pain, moderate) Qty: 30 0RF oxycodone 5 mg tablet 5 mg PO Q6H PRN (Reason: pain) Qty: 30 0RF Continued multivitamin Tablet 1 tab PO QAM atorvastatin [Lipitor] 10 mg Tablet 10 mg PO PM lisinopril-hydrochlorothiazide 20-12.5 mg Tablet 1 tab PO QAM ibuprofen 800 mg Tablet 800 mg PO TID acetaminophen [Acetaminophen Extra Strength] 500 mg Tablet 1,000 mg PO TID Discharge Orders: Discharge Order (Routine); Ordered 03/11/23 Ordered By: Jef Zhu/Other Patient Handouts: Prediabetes, 5 Steps for Eating Healthier Admission Data Admit Date/Time: 03/08/23 11:14 Attending Provider: Jef Reina Admit Provider: Jef Reina Primary Care Provider: Cori Donnelly Other Providers: Raul Atkins ; Martha Zamora ; Dorothea Crowell
[2023-03-11] MEDS: traMADol HCL 50 MG TABLET PO PRN (11:07)
--- NOTE | 2023-03-11 11:52 | Hospitalist Progress Note ---
Date of Service March 11, 2023 Assessment & Plan (1) S/P spinal surgery: (2) Neurogenic claudication due to lumbar spinal stenosis: (3) Hypertension: (4) Dyslipidemia: Plan This is a 62-year-old female past med significant for hyperlipidemia, prediabetes, hypertension, history of lumbar laminectomy is s/p back surgery. Status post back surgery POD#3 s/p lumbar decompression with bilateral medial facetectomies and foraminotomies L3-L4, L4-L5 and L5-S1. #2 posterior spinal fusion L3-S1. #3 placement posterior segmental instrumentation L3-S1 Per ortho for pain control, wound care, anticoagulation and activities H&H stable (hgb 9.5 today, 9.1 yesterday) Continue incentive spirometry, PT/OT when appropriate Hypertension Lisinopril, hydrochlorothiazide Prediabetes HbA1c 6.2, carb consistent diet Recommend lifestyle modifications Morbid obesity BMI 34- lifestyle modifications as above Hyperlipidemia Continue statin DVT prophylaxis anddisposition as per orthopedics - planned dc for today Thank you for this consultation. We will follow the patient with you during their hospital stay. You can reach a member of the [facility] 27/12 via [employer]. Admission and Anticipated Discharge Date Admission Date: March 08, 2023 Supervising Physician Co-Signing Physician Notes Pt seen and examined by myself, Martha Zamora MD on the day of service. Care was coordinated with Dorothea Crowell PA-C. States that she is better but still having pain and symptoms but discussing with primary team. Denied acute concerns otherwise. Breath sounds clear. Otherwise as above. Subjective Patient seen and examined in 305. Sitting in bedside chair and has been ambulating. Some LLE weakness increased from yesterday- felt to be within normal range post surgery per her discussion with Dr. Reina. Will follow up in clinic. Had first postop bowel movement today, urinating without issue. Denies any fever, chills, lightheadedness, chest pain, shortness of breath, nausea, vomiting, abdominal pain. Plan for dc home today. Review of Systems Review of Systems: At least ten systems reviewed and negative except as noted in the HPI. Physical Exam Physical Exam: Gen: WD/WN, NAD, sitting in bedside chair, A&Ox3 HEENT: Normocephalic, atraumatic, conjunctivae moist, sclerae anicteric, mucous membranes moist Lung: Clear to Auscultation bilaterally, no wheezes/rales/rhonchi Heart: Regular rate, regular rhythm, no murmurs, rubs, or gallops Abdomen: Soft, NT, ND +BS x 4 Extremities: +surgical dressing c/d/i, AGUSTINA drain visualized. No edema Skin: Warm, no rash Results & Data Results & Data Vital Signs (Past 12 Hours) Vital Signs Temp Pulse Resp BP Pulse Ox O2 Del Method 03/11/23 06:46 36.4 C L 74 18 111/72 95 Room Air Laboratory Results Short CBC 03/11/23 Range/Units 05:45 WBC 13.78 H (4.8-10.8) K/ul Hgb 9.5 L (12.0-16.0) g/dl Hct 27.6 L (37.0-47.0) % Plt Count 247 (130-400) K/uL BMP 03/11/23 05:45 Sodium 136 Potassium 4.1 Chloride 102 Carbon Dioxide 29 BUN 20 Creatinine 0.64 Glucose 102 H Calcium 8.8 Diagnostic Findings Lumbar Spine X-Ray 03/08/23 09:05 FL lumbar spine 2-3V CLINICAL HISTORY: L3-S1 DECOMPRESSION AND FUSION TECHNIQUE: 3 views were obtained with the C-arm in the OR with the above procedure. Total fluoroscopy time was 33.6 seconds. Radiation dose was 35.81 mGy. Comparison: Comparison is made to lumbar spine fluoroscopy 12/12/2018 FINDINGS/IMPRESSION: Intraoperative images were obtained of L3-S1 decompression fusion. Please correlate with intraoperative fluoroscopy and operative report. ACT 112: Negative or not required by law. Electronically signed by: Bunny Perales M.D. 03/08/2023 11:31 AM
== END 2023-03-11 12:50 | disposition home or self-care (01) | DRG 455 ==
LOC: ASU 07:26 → 3E 11:14